=== PATIENT | male | born 1990 | race Caucasian/White ===

== ENCOUNTER 2017-03-26 15:08 | Emergency (ER) | payer OTHER ==
[2017-03-26 15:08] VITALS: BMI 40.1
[2017-03-26 15:26] VITALS: TEMP 98.6
[2017-03-26] MEDS ORDERED: Amoxicillin-Clav 875-125 mg Tab PO STA (15:40)
[2017-03-26] MEDS ORDERED: Lidocaine 1% Inj (20ml) INFIL ONE (15:40)
[2017-03-26] MEDS ORDERED: Lidocaine 1% Inj (20ml) ONE (15:50)
[2017-03-26] MEDS ORDERED: Amoxicillin-Clav 875-125 mg Tab PO ONE (15:50)
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
[2017-03-26] MEDS ORDERED: Bacitracin 500 Units/gm Oint Foilpak UD TOP ONE (17:45)
[2017-03-26 17:58] VITALS: BP 151/90; PULSE 89; RESP 18
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
[2017-03-31 19:00] VITALS: O2SAT 96
== END 2017-03-26 17:59 | disposition home or self-care (01) ==
LOC: C.ER 15:08
DX: S01.81XA Laceration without foreign body of other part of head, initial encounter (principal); Y04.0XXA Assault by unarmed brawl or fight, initial encounter